=== PATIENT | female | born 2000 | race Caucasian/White ===

== ENCOUNTER 2022-06-20 19:58 | Emergency (ER) | payer OTHER ==
[2022-06-20 21:12] LABS: HEMOGLOBIN 12.6 gm/dl (12.3-15.3); RED BLOOD COUNT 4.18 M/UL (4.00-5.10); WHITE BLOOD COUNT 7.9 K/UL (4.5-11.0)
[2022-06-20 21:33] LABS: BUN/CREATININE RATIO 12 (0-10)
[2022-06-20] MEDS ORDERED: CEPHALEXIN500 M1 PO (22:34)
== END 2022-06-20 22:49 | disposition home or self-care (01) ==
LOC: ER1 19:58
PROVIDERS: Physician Assistant
DX: O03.9 Complete or unspecified spontaneous abortion without complication (principal); N39.0 Urinary tract infection, site not specified; R31.9 Hematuria, unspecified
CPT/HCPCS: 80053; 81001; 83690; 83735; 84702; 84703; 85025; 86850; 86900; 86901; 87086; 99284